=== PATIENT | male | born 1970 | race African-American/Black ===

== ENCOUNTER 2020-12-23 13:53 | Emergency (ER) | payer OTHER ==
[~2020-12-23] VITALS: Ht 175.3 cm; Wt 88.0 kg
[2020-12-23 14:02] VITALS: BP 150/90
[2020-12-23] MEDS ORDERED: KETOROLAC 60MG/2ML VIAL IM ONE (16:00)
[2020-12-23] MEDS ORDERED: IBUP-2030 MT (16:51)
[2020-12-23] MEDS ORDERED: CYCL10TA7 MT (16:51)
== END 2020-12-23 17:19 | disposition home or self-care (01) ==
LOC: ER 13:53
DX: S39.012A Strain of muscle, fascia and tendon of lower back, initial encounter (principal); V03.00XA Pedestrian on foot injured in collision with car, pick-up truck or van in nontraffic accident, initial encounter; Y93.89 Activity, other specified; Y92.89 Other specified places as the place of occurrence of the external cause; Y99.8 Other external cause status
CPT/HCPCS: 72100; 96372; 99283; J1885